=== PATIENT | male | born 1980 | race Caucasian/White ===

== ENCOUNTER 2025-06-05 11:10 | Emergency (ER) | payer MEDICAID ==
[~2025-06-05] VITALS: Ht 152.4 cm; Wt 63.5 kg
[~2025-06-05 11:10] MED LIST: FERR325T23 MT; LEVE1000 MT
[2025-06-05 11:25] VITALS: O2SAT 99
[2025-06-05 15:12] LABS: HEMATOCRIT. 32.2 % (42.0-52.0); HEMOGLOBIN. 10.0 g/dL (14.0-18.0); MEAN PLATELET VOLUME 9.8 fl (7.4-10.4); PLATELET 145 x1000/uL (130-400); RED BLOOD CELL COUNT 4.83 mill/uL (4.7-6.1); RED CELL DISTRIBUTION WIDTH 21.1 % (11.6-14.6)
[2025-06-05 15:22] LABS: CREATININE 0.7 mg/dL (0.6-1.3); UREA NITROGEN BLOOD 8 mg/dL (9-23)
[2025-06-05 15:23] LABS: TROPONIN I HIGH SENSITIVITY < 4 ng/L (3.0-53)
[2025-06-05 15:25] LABS: ADD RBC MORPHOLOGY YES
[2025-06-05 16:02] VITALS: BP 148/61; PULSE 61; RESP 16; TEMP 36.5; O2SAT 99
[2025-06-05 16:55] LABS: PLATELET ESTIMATE NORMAL
== END 2025-06-05 16:05 | disposition home or self-care (01) ==
LOC: ER 11:10
DX: G93.0 Cerebral cysts (principal); R53.1 Weakness; Z86.73 Personal history of transient ischemic attack (TIA), and cerebral infarction without residual deficits; Z79.899 Other long term (current) drug therapy
CPT/HCPCS: 36415; 80048; 84484; 85025; 93005; 99284